=== PATIENT | female | born 1945 | race Caucasian/White ===

== ENCOUNTER 2017-02-22 05:59 | Inpatient (IN) | payer OTHER ==
[~2017-02-22] VITALS: Ht 160 cm; Wt 80.5 kg
[2017-02-22] VITALS (14 sets, daily range): BP systolic 87–153; BP diastolic 45–78
[2017-02-22 07:03] LABS: HEMATOCRIT 11.3 % (36.0-46.0); MCH 33.3 PG (29.0-34.0); MCHC 32.7 G/DL (30.0-36.0); MCV 101.8 FL (83-99); PLATELET COUNT 347 K/uL (156-360); RBC DIS.WIDTH-CV 16.2 % (11.8-14.6); RBC DIS.WIDTH-SD 56.3 % (39-53); RED BLOOD COUNT 1.11 M/uL (3.80-5.20); WHITE BLOOD COUNT 13.5 K/uL (4.1-10.2)
[2017-02-22 07:15] LABS: ANION GAP 12 MEQ/L (2-14); CHLORIDE 112 MEQ/L (99-109); POTASSIUM 4.4 MEQ/L (3.7-5.4); SAMPLE HEMOLYSIS CHECK 0; SAMPLE ICTERIC CHECK 0; SAMPLE LIPEMIA CHECK 0; SODIUM 145 MEQ/L (136-147)
[2017-02-22 07:20] LABS: GFR ESTIMATE (CALCULATED) 40 mL/min/; GLUCOSE 140 mg/dL (70-99); UREA NITROGEN (BUN) 79 mg/dL (9-23)
[2017-02-22 08:54] LABS: ADD MIUA? NO; BILIRUBIN NEGATIVE; BLOOD NEGATIVE; COLOR YELLOW ((YELLOW)); GLUCOSE (STRIP) NEGATIVE; KETONES NEGATIVE; LEUKOCYTES NEGATIVE; NITRITE NEGATIVE; PROTEIN (STRIP) NEGATIVE; SPECIFIC GRAVITY 1.012 (1.000-1.030); UCUL ADDED? NO; UROBILINOGEN 0.2 MG/DL (0.2-1.0)
[2017-02-22 09:31] LABS: TROP-I INTERPRETATION NEGATIVE; TROPONIN-I 0.18 ng/mL (0.0-0.30)
[2017-02-22] MEDS ORDERED: LO-DOSE ASPIRIN81 M2 PO (09:35)
[2017-02-22] MEDS ORDERED: NORVASC10 MG PO (09:35)
[2017-02-22] MEDS ORDERED: THERAGRAN1 TABLET PO (09:36)
[2017-02-22] MEDS ORDERED: COLACE100 MG PO (09:37)
[2017-02-22] MEDS ORDERED: FOLIC ACID1 MG PO (09:38)
[2017-02-22] MEDS ORDERED: HYDROCHLOROTHIA25 MG PO (09:39)
[2017-02-22] MEDS ORDERED: LISINOPRIL40 MG PO (09:42)
[2017-02-22] MEDS ORDERED: MELOXICAM7.5 MG PO (09:42)
[2017-02-22] MEDS ORDERED: METHOTREXATE2.5 MG PO (09:43)
[2017-02-22] MEDS ORDERED: POLYETHYLENE GL17 GM PO (09:50)
[2017-02-22] MEDS ORDERED: SERTRALINE HCL50 MG PO ×2 (09:51)
[2017-02-22] MEDS ORDERED: OYSTERCAL-D 501 EACH PO (09:52)
[2017-02-22] MEDS ORDERED: PRIMIDONE250 MG PO (09:53)
[2017-02-22] MEDS ORDERED: HYDROXYZINE PAM25 MG PO (09:54)
[2017-02-22] MEDS ORDERED: PROLIA60 MG/1 ML SC (11:19)
[2017-02-22] MEDS ORDERED: SERTRALINE HCL25 MG PO (11:20)
[2017-02-22] MEDS ORDERED: ACETAMINOPHEN325 M1 PO (11:22)
[2017-02-22] MEDS ORDERED: DENAVIR1.5 GM TP (11:23)
[2017-02-22] MEDS ORDERED: MUCINEX600 MG PO (11:23)
[2017-02-22] MEDS ORDERED: CETIRIZINE HCL10 M2 PO (11:23)
[2017-02-22] MEDS ORDERED: TRIPLE ANTIB28.35 GM TP (11:24)
[2017-02-22 15:16] LABS: TROP-I INTERPRETATION INDETERMINATE; TROPONIN-I 0.38 ng/mL (0.0-0.30)
[2017-02-22 20:00] LABS: HEMATOCRIT 19.7 % (36.0-46.0); MCV 92.9 FL (83-99)
[2017-02-22 22:28] LABS: TROP-I INTERPRETATION POSITIVE; TROPONIN-I 1.46 ng/mL (0.0-0.30)
[2017-02-23] VITALS (9 sets, daily range): BP systolic 124–140; BP diastolic 67–92
[2017-02-23 09:08] LABS: HEMATOCRIT 33.1 % (36.0-46.0); MCH 32.1 PG (29.0-34.0); MCHC 33.8 G/DL (30.0-36.0); MCV 94.8 FL (83-99); MEAN PLAT.VOLUME 10.6 uM^3 (9.5-12.4); NRBC (%) 0.4 /100 WBC (0-0); PLATELET COUNT 247 K/uL (156-360); RBC DIS.WIDTH-CV 16.8 % (11.8-14.6); RBC DIS.WIDTH-SD 54.2 % (39-53); WHITE BLOOD COUNT 14.1 K/uL (4.1-10.2)
[2017-02-23 09:11] LABS: RED BLOOD COUNT 3.49 M/uL (3.80-5.20)
[2017-02-23 09:37] LABS: ALKALINE PHOSPHATASE 72 IU/L (3-129); ANION GAP 12 MEQ/L (2-14); CHLORIDE 119 MEQ/L (99-109); GFR ESTIMATE (CALCULATED) 52 mL/min/; GLUCOSE 110 mg/dL (70-99); POTASSIUM 4.1 MEQ/L (3.7-5.4); SAMPLE HEMOLYSIS CHECK 0; SAMPLE ICTERIC CHECK 0; SAMPLE LIPEMIA CHECK 0; SODIUM 147 MEQ/L (136-147); TOTAL BILIRUBIN 0.5 MG/DL (0.0-1.0); UREA NITROGEN (BUN) 45 mg/dL (9-23)
[2017-02-23 10:45] LABS: INTER. NORMALIZED RATIO 1.1; PROTHROMBIN TIME 10.7 (9.2-11.2)
[2017-02-23 18:30] LABS: TROPONIN-I 0.87 ng/mL (0.0-0.30)
[2017-02-23 18:31] LABS: TROP-I INTERPRETATION POSITIVE
[2017-02-23 20:34] LABS: HEMATOCRIT 33.1 % (36.0-46.0); MCV 93.8 FL (83-99)
[2017-02-24] VITALS (22 sets, daily range): BP systolic 76–130; BP diastolic 48–99
[2017-02-24 05:43] LABS: EOSINOPHIL (%) 0.5 % (0-5); EOSINOPHIL COUNT 0.1 K/uL (0-0.3); HEMATOCRIT 31.1 % (36.0-46.0); IMMATURE GRANULOCYTE (%) 0.8 % (0.0-0.7); IMMATURE GRANULOCYTE COUNT 0.1 K/uL; INSTRUMENT ABS NEUTROPHIL CT 10.8 K/uL; LYMPHOCYTE COUNT 0.9 K/uL (1.0-2.8); MCH 32.4 PG (29.0-34.0); MCHC 34.4 G/DL (30.0-36.0); MCV 94.2 FL (83-99); MEAN PLAT.VOLUME 10.5 uM^3 (9.5-12.4); MONOCYTE (%) 7.2 % (3-12); MONOCYTE COUNT 0.9 K/uL (0-0.8); NEUTROPHIL (%) 84.1 % (45-76); NEUTROPHIL COUNT 10.8 K/uL (1.8-6.4); NRBC (%) 0.2 /100 WBC (0-0); PLATELET COUNT 244 K/uL (156-360); RBC DIS.WIDTH-CV 16.6 % (11.8-14.6); RBC DIS.WIDTH-SD 54.4 % (39-53); WHITE BLOOD COUNT 12.9 K/uL (4.1-10.2)
[2017-02-24 08:30] LABS: ANION GAP 9 MEQ/L (2-14); CHLORIDE 120 MEQ/L (99-109); POTASSIUM 3.6 MEQ/L (3.7-5.4); SAMPLE HEMOLYSIS CHECK 0; SAMPLE ICTERIC CHECK 0; SAMPLE LIPEMIA CHECK 0; SODIUM 146 MEQ/L (136-147)
[2017-02-24 08:35] LABS: GFR ESTIMATE (CALCULATED) > 59 mL/min/; GLUCOSE 121 mg/dL (70-99); UREA NITROGEN (BUN) 30 mg/dL (9-23)
[2017-02-24 19:51] LABS: HEMATOCRIT 32.4 % (36.0-46.0); MCV 94.5 FL (83-99)
[2017-02-25 04:24] VITALS: BP 119/69
[2017-02-25 05:36] LABS: EOSINOPHIL (%) 2.7 % (0-5); EOSINOPHIL COUNT 0.3 K/uL (0-0.3); HEMATOCRIT 31.3 % (36.0-46.0); IMMATURE GRANULOCYTE (%) 0.8 % (0.0-0.7); IMMATURE GRANULOCYTE COUNT 0.1 K/uL; INSTRUMENT ABS NEUTROPHIL CT 9.8 K/uL; LYMPHOCYTE COUNT 0.8 K/uL (1.0-2.8); MCH 30.6 PG (29.0-34.0); MCHC 32.3 G/DL (30.0-36.0); MCV 94.8 FL (83-99); MEAN PLAT.VOLUME 10.4 uM^3 (9.5-12.4); MONOCYTE (%) 6.7 % (3-12); MONOCYTE COUNT 0.8 K/uL (0-0.8); NEUTROPHIL (%) 83.1 % (45-76); NEUTROPHIL COUNT 9.8 K/uL (1.8-6.4); PLATELET COUNT 257 K/uL (156-360); RBC DIS.WIDTH-CV 17.1 % (11.8-14.6); RBC DIS.WIDTH-SD 54.4 % (39-53); WHITE BLOOD COUNT 11.8 K/uL (4.1-10.2)
[2017-02-25 06:36] LABS: ANION GAP 9 MEQ/L (2-14); CHLORIDE 122 MEQ/L (99-109); GFR ESTIMATE (CALCULATED) 58 mL/min/; GLUCOSE 117 mg/dL (70-99); SAMPLE HEMOLYSIS CHECK 2; SAMPLE ICTERIC CHECK 0; SAMPLE LIPEMIA CHECK 0; SODIUM 149 MEQ/L (136-147); UREA NITROGEN (BUN) 29 mg/dL (9-23)
[2017-02-25 06:39] LABS: POTASSIUM ND MEQ/L (3.7-5.4)
[2017-02-25 07:33] LABS: POTASSIUM 4.4 MEQ/L (3.7-5.4)
[2017-02-25 08:37] VITALS: BP 139/68
[2017-02-25 11:43] VITALS: BP 140/85
[2017-02-25 15:18] VITALS: BP 138/89
[2017-02-25 17:58] LABS: ANION GAP 9 MEQ/L (2-14); CHLORIDE 119 MEQ/L (99-109); GFR ESTIMATE (CALCULATED) > 59 mL/min/; GLUCOSE 117 mg/dL (70-99); POTASSIUM 4.1 MEQ/L (3.7-5.4); SAMPLE HEMOLYSIS CHECK 0; SAMPLE ICTERIC CHECK 0; SAMPLE LIPEMIA CHECK 0; SODIUM 146 MEQ/L (136-147); UREA NITROGEN (BUN) 23 mg/dL (9-23)
[2017-02-25 19:59] VITALS: BP 123/90
[2017-02-25 20:03] LABS: HEMATOCRIT 33.6 % (36.0-46.0); MCV 95.5 FL (83-99)
[2017-02-25 22:30] VITALS: BP 130/7; BP 130/70
[2017-02-26 04:36] VITALS: BP 145/79
[2017-02-26 05:02] LABS: HEMATOCRIT 31.4 % (36.0-46.0); MCH 30.7 PG (29.0-34.0); MCHC 32.5 G/DL (30.0-36.0); MCV 94.6 FL (83-99); MEAN PLAT.VOLUME 10.9 uM^3 (9.5-12.4); PLATELET COUNT 263 K/uL (156-360); RBC DIS.WIDTH-CV 16.6 % (11.8-14.6); RED BLOOD COUNT 3.32 M/uL (3.80-5.20); WHITE BLOOD COUNT 11.8 K/uL (4.1-10.2)
[2017-02-26 05:55] LABS: ALKALINE PHOSPHATASE 64 IU/L (3-129); ANION GAP 9 MEQ/L (2-14); CHLORIDE 117 MEQ/L (99-109); GFR ESTIMATE (CALCULATED) > 59 mL/min/; GLUCOSE 104 mg/dL (70-99); POTASSIUM 4.1 MEQ/L (3.7-5.4); SAMPLE HEMOLYSIS CHECK 1; SAMPLE ICTERIC CHECK 0; SAMPLE LIPEMIA CHECK 0; SODIUM 143 MEQ/L (136-147); TOTAL BILIRUBIN 0.4 MG/DL (0.0-1.0); UREA NITROGEN (BUN) 20 mg/dL (9-23)
[2017-02-26 08:35] VITALS: BP 144/72
[2017-02-26] MEDS ORDERED: PANTOPRAZOLE SO40 MG PO (11:48)
[2017-02-26] MEDS ORDERED: DILTIAZEM 24HR120 MG PO (11:48)
[2017-02-26] MEDS ORDERED: DIGOXIN125 MCG PO (11:48)
[2017-02-26 12:00] VITALS: BP 147/78
== END 2017-02-26 16:51 | disposition home or self-care (01) | DRG 378 ==
LOC: EME → EDBD 05:59 → EME 05:59 → 4EAST 09:03 → EDOF 09:03 → 4EAST 11:00
PROVIDERS: Hospitalist; Internal Medicine Gastroenterology; Nurse Practitioner Family; Physician Assistant; Physician Assistant Medical; Student in an Organized Health Care Education/Training Program
PROC: 30233N1 Transfusion of Nonautologous Red Blood Cells into Peripheral Vein, Percutaneous Approach (ICD-10-PCS; principal; 2017-02-22)
PROC: 0DB68ZX Excision of Stomach, Via Natural or Artificial Opening Endoscopic, Diagnostic (ICD-10-PCS; 2017-02-22)
DX: K25.4 Chronic or unspecified gastric ulcer with hemorrhage (principal); N17.9 Acute kidney failure, unspecified; E87.2 Acidosis; E87.0 Hyperosmolality and hypernatremia; I95.9 Hypotension, unspecified; I24.8 Other forms of acute ischemic heart disease; I48.91 Unspecified atrial fibrillation; I47.1 Supraventricular tachycardia; B00.1 Herpesviral vesicular dermatitis; B35.6 Tinea cruris; E86.0 Dehydration; D62 Acute posthemorrhagic anemia; E87.6 Hypokalemia; F71 Moderate intellectual disabilities; G40.909 Epilepsy, unspecified, not intractable, without status epilepticus; G80.9 Cerebral palsy, unspecified; I10 Essential (primary) hypertension; K22.10 Ulcer of esophagus without bleeding; K29.70 Gastritis, unspecified, without bleeding; K57.90 Diverticulosis of intestine, part unspecified, without perforation or abscess without bleeding; K59.00 Constipation, unspecified; M06.9 Rheumatoid arthritis, unspecified; M19.90 Unspecified osteoarthritis, unspecified site; M81.0 Age-related osteoporosis without current pathological fracture; Z66 Do not resuscitate; Z79.82 Long term (current) use of aspirin; Z79.899 Other long term (current) drug therapy; Z87.11 Personal history of peptic ulcer disease; R00.0 Tachycardia, unspecified; R06.82 Tachypnea, not elsewhere classified; M62.81 Muscle weakness (generalized)
CPT/HCPCS: 71010; 71020; 74176; 80048; 80048 91; 80053; 81003; 84484; 84999; 85014; 85018; 85025; 85027; 85610; 86900; 86901; 86920; 88305; 88342 TC; 93005; 93306; 94640; 94799; 99202; 99281; 99285; C9113; J1160; J2060; J7030; J7050; J7070; P9016

== ENCOUNTER → 2017-05-01 | Outpatient (CLI) | payer OTHER ==
[~2017-05-01] VITALS: Ht 167.6 cm; Wt 78.0 kg
[~2017-05-01] MED LIST: ACETAMINOPHEN325 M1 PO; BENADRYL25 MG PO; CETIRIZINE HCL10 M2 PO; COLACE100 MG PO; DENAVIR1.5 GM TP; DIGOXIN125 MCG PO; DILTIAZEM 24HR120 MG PO; FOLIC ACID1 MG PO; HYDROCHLOROTHIA25 MG PO; HYDROXYZINE PAM25 MG PO; LISINOPRIL40 MG PO; LO-DOSE ASPIRIN81 M2 PO; MELOXICAM7.5 MG PO; METHOTREXATE2.5 MG PO; MUCINEX600 MG PO; NORVASC10 MG PO; OYSTERCAL-D 501 EACH PO; PANTOPRAZOLE SO40 MG PO; POLYETHYLENE GL17 GM PO; PRIMIDONE250 MG PO; PROLIA60 MG/1 ML SC; SERTRALINE HCL25 MG PO; SERTRALINE HCL50 MG PO; THERAGRAN1 TABLET PO; TRIPLE ANTIB28.35 GM TP
== END | disposition home or self-care (01) ==
LOC: AMB 12:14 → OPR 13:00
PROC: 0DB68ZX Excision of Stomach, Via Natural or Artificial Opening Endoscopic, Diagnostic (ICD-10-PCS; principal; 2017-05-01)
PROC: 0DBK8ZX Excision of Ascending Colon, Via Natural or Artificial Opening Endoscopic, Diagnostic (ICD-10-PCS; principal; 2017-05-01)
PROC: 0DBN8ZX Excision of Sigmoid Colon, Via Natural or Artificial Opening Endoscopic, Diagnostic (ICD-10-PCS; principal; 2017-05-01)
DX: Z12.11 Encounter for screening for malignant neoplasm of colon (principal); Z09 Encounter for follow-up examination after completed treatment for conditions other than malignant neoplasm; Z87.11 Personal history of peptic ulcer disease; K29.70 Gastritis, unspecified, without bleeding; D12.2 Benign neoplasm of ascending colon; K63.5 Polyp of colon; K64.4 Residual hemorrhoidal skin tags; K44.9 Diaphragmatic hernia without obstruction or gangrene; D64.9 Anemia, unspecified; Z79.82 Long term (current) use of aspirin; K21.9 Gastro-esophageal reflux disease without esophagitis; Z88.1 Allergy status to other antibiotic agents; Z88.8 Allergy status to other drugs, medicaments and biological substances; Z91.09 Other allergy status, other than to drugs and biological substances
CPT/HCPCS: 88305; 88342 TC; J2250

== ENCOUNTER 2017-10-23 20:04 | Inpatient (IN) | payer OTHER ==
[~2017-10-23] VITALS: Ht 162.6 cm; Wt 70.0 kg
[~2017-10-23 20:04] MED LIST changes: +AMLODIPINE BESY10 MG PO; +ASPIRIN81 M2 PO; +CARDIZEM CD,CA180 MG PO; +MIRALAX17 GM PO; +PROTONIX40 MG PO
[2017-10-23 20:53] LABS: BASOPHIL (%) 0.3 % (0-1); EOSINOPHIL (%) 2.3 % (0-5); EOSINOPHIL COUNT 0.2 K/uL (0-0.3); HEMATOCRIT 24.7 % (36.0-46.0); HEMOGLOBIN 8.1 G/DL (11.9-15.5); IMMATURE GRANULOCYTE (%) 0.5 % (0.0-0.7); LYMPHOCYTE (%) 16.2 % (15-42); LYMPHOCYTE COUNT 1.1 K/uL (1.0-2.8); MCH 29.6 PG (29.0-34.0); MCHC 32.8 G/DL (30.0-36.0); MCV 90.1 FL (83-99); MONOCYTE COUNT 0.5 K/uL (0-0.8); NEUTROPHIL (%) 73.7 % (45-76); NEUTROPHIL COUNT 4.8 K/uL (1.8-6.4); RBC DIS.WIDTH-CV 14.5 % (11.8-14.6); RBC DIS.WIDTH-SD 46.6 % (39-53); RED BLOOD COUNT 2.74 M/uL (3.80-5.20); WHITE BLOOD COUNT 6.5 K/uL (4.1-10.2)
[2017-10-23 20:55] LABS: PLATELET COUNT 260 K/uL (156-360)
[2017-10-23 21:03] LABS: ALBUMIN 3.7 g/dL (3.2-4.8); CHLORIDE 108 mEq/L (99-109); SODIUM 136 mEq/L (136-147)
[2017-10-23 21:05] LABS: GLUCOSE 122 mg/dL (70-99)
[2017-10-23 21:07] LABS: TOTAL BILIRUBIN 0.1 mg/dL (0.0-1.0)
[2017-10-23 21:09] LABS: ALKALINE PHOSPHATASE 106 IU/L (3-129); CREATININE 1.1 mg/dL (0.6-1.3); GFR ESTIMATE (CALCULATED) 52 mL/min/
[2017-10-23 21:10] LABS: UREA NITROGEN (BUN) 45 mg/dL (9-23)
[2017-10-23 21:11] LABS: AST (GOT) 21 IU/L (2-34)
[2017-10-23 21:12] LABS: ALT (GPT) 37 IU/L (3-49)
[2017-10-23 21:17] LABS: TROP-I INTERPRETATION NEGATIVE; TROPONIN-I < 0.01 ng/mL (0.0-0.30)
[2017-10-23 21:19] LABS: POTASSIUM 6.5 mEq/L (3.7-5.4)
[2017-10-23 21:21] LABS: APPEARANCE SL.HAZY ((CLEAR)); BILIRUBIN NEGATIVE; BLOOD NEGATIVE; COLOR YELLOW ((YELLOW)); GLUCOSE (STRIP) NEGATIVE; KETONES NEGATIVE; LEUKOCYTES SMALL; NITRITE NEGATIVE; PROTEIN (STRIP) 30; SPECIFIC GRAVITY 1.014 (1.000-1.030); UROBILINOGEN 0.2 MG/DL (0.2-1.0)
[2017-10-23 21:34] LABS: BACTERIA RARE /HPF; EPITHELIAL CELLS RARE /HPF; HYALINE CASTS 0-5 /LPF; MUCUS NONE SEEN /LPF; RED BLOOD CELLS 0-5 /HPF (0-5); UCUL ADDED? YES
[2017-10-23] MEDS ORDERED: AMLODIPINE BESY10 MG PO (23:33)
[2017-10-23] MEDS ORDERED: METHOTREXATE2.5 MG PO (23:37)
[2017-10-23] MEDS ORDERED: DENAVIR1.5 GM TP (23:38)
[2017-10-23] MEDS ORDERED: PREDNISONE5 MG PO (23:38)
[2017-10-23] MEDS ORDERED: IBUPROFEN800 MG PO (23:39)
[2017-10-23] MEDS ORDERED: PROCTOZONE-HC30 GM PR (23:39)
[2017-10-24 02:16] LABS: CHLORIDE 112 mEq/L (99-109); SODIUM 137 mEq/L (136-147)
[2017-10-24 02:22] LABS: GFR ESTIMATE (CALCULATED) 58 mL/min/
[2017-10-24 02:23] LABS: UREA NITROGEN (BUN) 45 mg/dL (9-23)
[2017-10-24 02:30] LABS: GLUCOSE 65 mg/dL (70-99); POTASSIUM 6.8 mEq/L (3.7-5.4)
[2017-10-24 02:59] LABS: ALBUMIN 3.6 g/dL (3.2-4.8)
[2017-10-24 03:02] LABS: TOTAL PROTEIN 6.6 g/dL (6.4-8.3)
[2017-10-24 03:05] LABS: ALKALINE PHOSPHATASE 114 IU/L (3-129)
[2017-10-24 03:07] LABS: DIRECT BILIRUBIN 0.1 mg/dL (0.0-0.3)
[2017-10-24 03:08] LABS: ALT (GPT) 57 IU/L (3-49); CREATINE KINASE 52 IU/L (1-294); TOTAL CK 52 IU/L (1-294)
[2017-10-24 03:09] LABS: AST (GOT) 45 IU/L (2-34); TOTAL BILIRUBIN 0.2 mg/dL (0.0-1.0)
[2017-10-24 03:14] LABS: CK-MB 3.7 ng/mL (0.0-4.9); CKMB RELATIVE INDEX 7.1 (0.0-3.9)
[2017-10-24 03:15] VITALS: BP 126/60
[2017-10-24 05:43] LABS: TROP-I INTERPRETATION NEGATIVE; TROPONIN-I < 0.01 ng/mL (0.0-0.30)
[2017-10-24 08:17] LABS: HEMATOCRIT 23.3 % (36.0-46.0); HEMOGLOBIN 7.6 G/DL (11.9-15.5); MCH 29.7 PG (29.0-34.0); MCHC 32.6 G/DL (30.0-36.0); PLATELET COUNT 271 K/uL (156-360); RBC DIS.WIDTH-CV 14.8 % (11.8-14.6); RED BLOOD COUNT 2.56 M/uL (3.80-5.20); WHITE BLOOD COUNT 8.3 K/uL (4.1-10.2)
[2017-10-24 08:30] VITALS: BP 136/61
[2017-10-24 08:35] LABS: CHLORIDE 112 MEQ/L (99-109); CREATININE 1.1 MG/DL (0.6-1.3); GFR ESTIMATE (CALCULATED) 52 mL/min/; GLUCOSE 70 mg/dL (70-99); POTASSIUM 6.6 MEQ/L (3.7-5.4); SODIUM 140 MEQ/L (136-147); UREA NITROGEN (BUN) 43 mg/dL (9-23)
[2017-10-24 08:47] LABS: THYROTROPIN (TSH) 15.9 MIU/L (0.4-5.5)
[2017-10-24 12:25] VITALS: BP 135/62
[2017-10-24 13:11] LABS: TROP-I INTERPRETATION NEGATIVE; TROPONIN-I 0.02 ng/mL (0.0-0.30)
[2017-10-24 15:33] LABS: C DIFF TOXIN NEGATIVE (NEGATIVE)
[2017-10-24 16:07] VITALS: BP 139/62
[2017-10-24 16:34] LABS: ALBUMIN 3.6 G/DL (3.2-4.8); CHLORIDE 114 MEQ/L (99-109); SODIUM 143 MEQ/L (136-147)
[2017-10-24 16:39] LABS: CREATININE 1.3 MG/DL (0.6-1.3); GFR ESTIMATE (CALCULATED) 43 mL/min/; PHOSPHORUS 3.9 mg/dL (2.5-4.9); UREA NITROGEN (BUN) 35 mg/dL (9-23)
[2017-10-24 16:46] LABS: GLUCOSE 107 mg/dL (70-99)
[2017-10-24 19:45] VITALS: BP 174/76
[2017-10-24 21:27] LABS: ALBUMIN 3.7 G/DL (3.2-4.8); CHLORIDE 112 MEQ/L (99-109); CREATININE 1.3 MG/DL (0.6-1.3); GFR ESTIMATE (CALCULATED) 43 mL/min/; GLUCOSE 117 mg/dL (70-99); PHOSPHORUS 3.6 mg/dL (2.5-4.9); POTASSIUM 5.4 MEQ/L (3.7-5.4); SODIUM 142 MEQ/L (136-147); UREA NITROGEN (BUN) 38 mg/dL (9-23)
[2017-10-24 22:30] VITALS: BP 155/70
[2017-10-25] VITALS (8 sets, daily range): BP systolic 143–161; BP diastolic 63–80
[2017-10-25 05:17] LABS: HEMATOCRIT 23.4 % (36.0-46.0); HEMOGLOBIN 7.7 G/DL (11.9-15.5); MCH 29.4 PG (29.0-34.0); MCHC 32.9 G/DL (30.0-36.0); MCV 89.3 FL (83-99); RBC DIS.WIDTH-CV 14.8 % (11.8-14.6); RBC DIS.WIDTH-SD 47.7 % (39-53); RED BLOOD COUNT 2.62 M/uL (3.80-5.20); WHITE BLOOD COUNT 9.2 K/uL (4.1-10.2)
[2017-10-25 05:26] LABS: INTER. NORMALIZED RATIO 1.1
[2017-10-25 05:46] LABS: PLATELET COUNT 281 K/uL (156-360)
[2017-10-25 05:59] LABS: CHLORIDE 112 MEQ/L (99-109); CREATININE 1.1 MG/DL (0.6-1.3); GFR ESTIMATE (CALCULATED) 52 mL/min/; GLUCOSE 102 mg/dL (70-99); POTASSIUM 4.7 MEQ/L (3.7-5.4); SODIUM 144 MEQ/L (136-147); UREA NITROGEN (BUN) 29 mg/dL (9-23)
[2017-10-25 06:01] LABS: ALBUMIN 3.5 G/DL (3.2-4.8); ALKALINE PHOSPHATASE 96 IU/L (3-129); ALT (GPT) 52 IU/L (3-49); AST (GOT) 36 IU/L (2-34); CHLORIDE 113 MEQ/L (99-109); CREATININE 1.1 MG/DL (0.6-1.3); GFR ESTIMATE (CALCULATED) 52 mL/min/; GLUCOSE 104 mg/dL (70-99); POTASSIUM 4.7 MEQ/L (3.7-5.4); SODIUM 144 MEQ/L (136-147); TOTAL BILIRUBIN 0.2 MG/DL (0.0-1.0); TOTAL PROTEIN 6.3 G/DL (6.4-8.3); UREA NITROGEN (BUN) 29 mg/dL (9-23)
[2017-10-26] VITALS (8 sets, daily range): BP systolic 143–167; BP diastolic 70–95
[2017-10-26 06:08] LABS: HEMATOCRIT 27.9 % (36.0-46.0); HEMOGLOBIN 9.3 G/DL (11.9-15.5); MCH 29.2 PG (29.0-34.0); MCHC 33.3 G/DL (30.0-36.0); MCV 87.7 FL (83-99); PLATELET COUNT 265 K/uL (156-360); RBC DIS.WIDTH-SD 48.2 % (39-53)
[2017-10-26 06:20] LABS: RED BLOOD COUNT 3.18 M/uL (3.80-5.20)
[2017-10-26 06:34] LABS: ALBUMIN 3.4 G/DL (3.2-4.8); CHLORIDE 108 MEQ/L (99-109); CREATININE 1.2 MG/DL (0.6-1.3); GFR ESTIMATE (CALCULATED) 47 mL/min/; GLUCOSE 118 mg/dL (70-99); PHOSPHORUS 3.2 mg/dL (2.5-4.9); POTASSIUM 4.2 MEQ/L (3.7-5.4); SODIUM 140 MEQ/L (136-147); UREA NITROGEN (BUN) 30 mg/dL (9-23)
[2017-10-26 07:44] LABS: FERRITIN 120 NG/ML (10-291)
[2017-10-26 07:55] LABS: FOLIC ACID (FOLATE) > 22.0 NG/ML (5.0-22.0)
[2017-10-26 10:48] LABS: IRON 78 MCG/DL (35-150); TRANSFERRIN (TIBC) 199.8 mg/dL (215-380); TRANSFERRIN SATUR. 39 % (20-55)
[2017-10-26 12:05] LABS: STOOL OCCULT BLD 1ST SPECIMEN NEGATIVE
[2017-10-27 04:54] VITALS: BP 155/69
[2017-10-27 05:34] LABS: BASOPHIL (%) 0.2 % (0-1); EOSINOPHIL (%) 1.7 % (0-5); EOSINOPHIL COUNT 0.2 K/uL (0-0.3); HEMATOCRIT 28.2 % (36.0-46.0); HEMOGLOBIN 9.6 G/DL (11.9-15.5); IMMATURE GRANULOCYTE (%) 0.4 % (0.0-0.7); LYMPHOCYTE (%) 14.4 % (15-42); LYMPHOCYTE COUNT 1.8 K/uL (1.0-2.8); MCV 88.1 FL (83-99); MONOCYTE (%) 9.8 % (3-12); MONOCYTE COUNT 1.2 K/uL (0-0.8); NEUTROPHIL (%) 73.5 % (45-76); PLATELET COUNT 289 K/uL (156-360); RBC DIS.WIDTH-CV 14.5 % (11.8-14.6); RBC DIS.WIDTH-SD 46.4 % (39-53); WHITE BLOOD COUNT 12.2 K/uL (4.1-10.2)
[2017-10-27 12:40] VITALS: BP 133/88
[2017-10-27 15:19] VITALS: BP 150/74
[2017-10-27 19:17] VITALS: BP 151/92
[2017-10-27 22:39] VITALS: BP 157/79
[2017-10-28 02:17] VITALS: BP 167/80
[2017-10-28 07:22] VITALS: BP 172/81
[2017-10-28 11:35] VITALS: BP 158/84
[2017-10-28] MEDS ORDERED: LEVOTHYROXINE25 MCG PO (13:39)
[2017-10-28 17:37] VITALS: BP 173/78
[2017-10-28 19:45] VITALS: BP 150/60
[2017-10-29 00:30] VITALS: BP 152/79
[2017-10-29 03:15] VITALS: BP 150/65
[2017-10-29 07:30] VITALS: BP 141/91
[2017-10-29 12:12] VITALS: BP 159/63
[2017-10-30 00:08] VITALS: BP 134/61
[2017-10-30 07:00] VITALS: BP 153/72
[2017-10-30 15:15] VITALS: BP 169/74
== END 2017-10-30 16:36 | disposition home or self-care (01) | DRG 682 ==
LOC: EME → EDBD 20:04 → EDOF 10-24 00:57 → 4EAST 10-24 00:57 → ENRESERV 10-24 00:58 → 4EAST 10-24 03:15 → ENRESERV 10-29 16:18 → 5EAST 10-29 18:04 → ENPENDDIS 10-30 → 5EAST 10-30 16:36
PROVIDERS: Emergency Medicine; Hospitalist; Internal Medicine; Internal Medicine Gastroenterology; Internal Medicine Nephrology
PROC: 30233N1 Transfusion of Nonautologous Red Blood Cells into Peripheral Vein, Percutaneous Approach (ICD-10-PCS; principal; 2017-10-25)
PROC: 0DB68ZX Excision of Stomach, Via Natural or Artificial Opening Endoscopic, Diagnostic (ICD-10-PCS; 2017-10-26)
DX: N17.9 Acute kidney failure, unspecified (principal); R68.0 Hypothermia, not associated with low environmental temperature; J69.0 Pneumonitis due to inhalation of food and vomit; J20.9 Acute bronchitis, unspecified; E87.5 Hyperkalemia; R00.1 Bradycardia, unspecified; N31.9 Neuromuscular dysfunction of bladder, unspecified; R33.9 Retention of urine, unspecified; K29.70 Gastritis, unspecified, without bleeding; K44.9 Diaphragmatic hernia without obstruction or gangrene; D50.0 Iron deficiency anemia secondary to blood loss (chronic); G40.909 Epilepsy, unspecified, not intractable, without status epilepticus; I10 Essential (primary) hypertension; E03.9 Hypothyroidism, unspecified; G80.9 Cerebral palsy, unspecified; F71 Moderate intellectual disabilities; R60.0 Localized edema; M06.9 Rheumatoid arthritis, unspecified; F32.9 Major depressive disorder, single episode, unspecified; M19.90 Unspecified osteoarthritis, unspecified site; Z66 Do not resuscitate; Z86.010 Personal history of colon polyps; Z87.11 Personal history of peptic ulcer disease; Z79.52 Long term (current) use of systemic steroids; Z87.440 Personal history of urinary (tract) infections
CPT/HCPCS: 70450; 71045; 80048; 80048 91; 80053; 80069; 80076; 81003; 82272; 82550; 82550 91; 82553; 82607; 82728; 82746; 82948; 83540; 83605; 84439; 84443; 84466; 84484; 85025; 85027; 85610; 86850; 86900; 86901; 86920; 87040; 87086; 87493; 88305; 88342 TC; 92610 GN; 93005; 94640; 99202; 99281; 99285; J0360; J0610; J0692; J1720; J1815; J1940; J3370; J7030; J7050; J7512; J8610; P9016; Q0177

== ENCOUNTER 2017-12-17 03:48 | Inpatient (IN) | payer OTHER ==
[~2017-12-17] VITALS: Ht 165.1 cm; Wt 75.0 kg
[~2017-12-17 03:48] MED LIST changes: +IBUPROFEN800 MG PO; +LEVOTHYROXINE25 MCG PO; +PREDNISONE5 MG PO; +PROCTOZONE-HC30 GM PR
[2017-12-17 04:17] LABS: BASE EXCESS -5.9 mEq/L (-3 to +3); BICARBONATE 19.5 mEq/L (22-26); CARBOXY HGB 0.4 % (0-5); METHEMOGLOBIN 0.2 % (0-1.5); PCO2 37 mm Hg (35-45); PO2 62 mm Hg (80-100); pH 7.33 (7.35-7.45)
[2017-12-17 04:18] LABS: COMMENTS - BLOOD GASES C+; DEVICE NC; O2 FLOW 6 L/MIN; SITE RR
[2017-12-17 04:44] LABS: HEMATOCRIT 26.1 % (36.0-46.0); MCH 30.6 PG (29.0-34.0); MCHC 34.9 G/DL (30.0-36.0); MCV 87.9 FL (83-99); RBC DIS.WIDTH-CV 15.4 % (11.8-14.6); RBC DIS.WIDTH-SD 49.1 % (39-53); WHITE BLOOD COUNT 16.6 K/uL (4.1-10.2)
[2017-12-17 04:51] LABS: HEMOGLOBIN 9.1 G/DL (11.9-15.5); RED BLOOD COUNT 2.97 M/uL (3.80-5.20)
[2017-12-17 04:59] LABS: ALBUMIN 3.6 g/dL (3.2-4.8); CHLORIDE 104 mEq/L (99-109); POTASSIUM 5.9 mEq/L (3.7-5.4); SODIUM 131 mEq/L (136-147)
[2017-12-17 05:01] LABS: GLUCOSE 109 mg/dL (70-99); TOTAL PROTEIN 6.4 g/dL (6.4-8.3)
[2017-12-17 05:03] LABS: TOTAL BILIRUBIN 0.2 mg/dL (0.0-1.0)
[2017-12-17 05:04] LABS: ALKALINE PHOSPHATASE 88 IU/L (3-129)
[2017-12-17 05:05] LABS: GFR ESTIMATE (CALCULATED) 58 mL/min/
[2017-12-17 05:06] LABS: AST (GOT) 17 IU/L (2-34); UREA NITROGEN (BUN) 41 mg/dL (9-23)
[2017-12-17 05:08] LABS: ALT (GPT) 31 IU/L (3-49)
[2017-12-17 05:14] LABS: DIGOXIN 0.6 ng/mL (0.8-2.0)
[2017-12-17 05:54] LABS: PLAT.SUFFICIENCY ADEQUATE
[2017-12-17 05:55] LABS: PLATELET COUNT 298 K/uL (156-360)
[2017-12-17 10:10] VITALS: BP 123/60
[2017-12-17] MEDS ORDERED: LOMOTIL TABLET1 EACH PO (11:08)
[2017-12-17] MEDS ORDERED: DENAVIR1.5 GM TP (11:08)
[2017-12-17 15:55] VITALS: BP 125/65
[2017-12-17 19:10] VITALS: BP 111/55
[2017-12-18 00:10] VITALS: BP 119/60
[2017-12-18 04:48] VITALS: BP 142/67
[2017-12-18 05:32] LABS: HEMATOCRIT 23.6 % (36.0-46.0); MCH 29.9 PG (29.0-34.0); MCHC 33.9 G/DL (30.0-36.0); MCV 88.1 FL (83-99); RBC DIS.WIDTH-CV 15.9 % (11.8-14.6); RBC DIS.WIDTH-SD 50.8 % (39-53); RED BLOOD COUNT 2.68 M/uL (3.80-5.20); WHITE BLOOD COUNT 11.1 K/uL (4.1-10.2)
[2017-12-18 06:12] LABS: PLAT.SUFFICIENCY ADEQUATE; PLATELET COUNT 253 K/uL (156-360)
[2017-12-18 07:10] VITALS: BP 140/71
[2017-12-18 12:50] VITALS: BP 160/74
[2017-12-18 15:40] VITALS: BP 149/68
[2017-12-18 21:20] VITALS: BP 174/74
[2017-12-19 00:28] VITALS: BP 138/67
[2017-12-19 05:08] VITALS: BP 159/71
[2017-12-19 05:29] LABS: BASOPHIL (%) 0.3 % (0-1); EOSINOPHIL (%) 0.3 % (0-5); HEMATOCRIT 23.9 % (36.0-46.0); HEMOGLOBIN 7.9 G/DL (11.9-15.5); IMMATURE GRANULOCYTE (%) 1.2 % (0.0-0.7); LYMPHOCYTE (%) 8.9 % (15-42); LYMPHOCYTE COUNT 1.1 K/uL (1.0-2.8); MCH 29.6 PG (29.0-34.0); MCHC 33.1 G/DL (30.0-36.0); MCV 89.5 FL (83-99); MONOCYTE (%) 6.3 % (3-12); MONOCYTE COUNT 0.8 K/uL (0-0.8); NEUTROPHIL COUNT 9.9 K/uL (1.8-6.4); PLATELET COUNT 250 K/uL (156-360); RBC DIS.WIDTH-CV 16.1 % (11.8-14.6); RBC DIS.WIDTH-SD 52.2 % (39-53); RED BLOOD COUNT 2.67 M/uL (3.80-5.20); WHITE BLOOD COUNT 11.9 K/uL (4.1-10.2)
[2017-12-19 05:55] LABS: CHLORIDE 114 MEQ/L (99-109); CREATININE 1.1 MG/DL (0.6-1.3); GFR ESTIMATE (CALCULATED) 52 mL/min/; GLUCOSE 134 mg/dL (70-99)
[2017-12-19 05:56] LABS: POTASSIUM 4.3 MEQ/L (3.7-5.4); SODIUM 143 MEQ/L (136-147); UREA NITROGEN (BUN) 19 mg/dL (9-23)
[2017-12-19 08:12] VITALS: BP 146/102
[2017-12-19 11:30] VITALS: BP 154/69
[2017-12-19 18:05] VITALS: BP 152/68
[2017-12-19 19:45] VITALS: BP 167/86
[2017-12-20] VITALS: BP 155/86
[2017-12-20 03:55] VITALS: BP 149/75
[2017-12-20 06:03] LABS: BASOPHIL (%) 0.2 % (0-1); EOSINOPHIL (%) 0 % (0-5); HEMATOCRIT 24.9 % (36.0-46.0); HEMOGLOBIN 8.2 G/DL (11.9-15.5); IMMATURE GRANULOCYTE (%) 1.4 % (0.0-0.7); LYMPHOCYTE (%) 8.8 % (15-42); LYMPHOCYTE COUNT 0.9 K/uL (1.0-2.8); MCH 30.1 PG (29.0-34.0); MCHC 32.9 G/DL (30.0-36.0); MCV 91.5 FL (83-99); MONOCYTE (%) 2.3 % (3-12); MONOCYTE COUNT 0.2 K/uL (0-0.8); NEUTROPHIL (%) 87.3 % (45-76); NEUTROPHIL COUNT 8.8 K/uL (1.8-6.4); PLATELET COUNT 259 K/uL (156-360); RBC DIS.WIDTH-CV 16.2 % (11.8-14.6); RBC DIS.WIDTH-SD 54.2 % (39-53); RED BLOOD COUNT 2.72 M/uL (3.80-5.20); WHITE BLOOD COUNT 10.1 K/uL (4.1-10.2)
[2017-12-20 06:15] LABS: CHLORIDE 116 MEQ/L (99-109); CREATININE 1.1 MG/DL (0.6-1.3); GFR ESTIMATE (CALCULATED) 52 mL/min/; GLUCOSE 160 mg/dL (70-99); POTASSIUM 4.5 MEQ/L (3.7-5.4); SODIUM 147 MEQ/L (136-147); UREA NITROGEN (BUN) 22 mg/dL (9-23)
[2017-12-20 08:05] VITALS: BP 160/74
[2017-12-20 11:56] VITALS: BP 158/76
[2017-12-20 16:14] VITALS: BP 166/79
[2017-12-20 20:15] VITALS: BP 138/62
[2017-12-21 00:17] VITALS: BP 137/76
[2017-12-21 04:00] VITALS: BP 148/71
[2017-12-21 08:02] VITALS: BP 149/77
[2017-12-21] MEDS ORDERED: AUGMENTIN875 MG PO (12:17)
[2017-12-21 16:52] LABS: HEMATOCRIT 24.6 % (36.0-46.0); HEMOGLOBIN 8.1 G/DL (11.9-15.5); MCHC 32.9 G/DL (30.0-36.0); MCV 91.1 FL (83-99); RBC DIS.WIDTH-CV 16.6 % (11.8-14.6); RBC DIS.WIDTH-SD 54.1 % (39-53); WHITE BLOOD COUNT 12.6 K/uL (4.1-10.2)
[2017-12-21 16:58] LABS: PLATELET COUNT 340 K/uL (156-360)
[2017-12-21 17:10] LABS: CHLORIDE 123 MEQ/L (99-109); POTASSIUM 3.6 MEQ/L (3.7-5.4)
[2017-12-21 17:11] LABS: SODIUM 155 MEQ/L (136-147)
[2017-12-21 17:44] LABS: CREATININE 1.2 MG/DL (0.6-1.3); GFR ESTIMATE (CALCULATED) 47 mL/min/
[2017-12-21 17:45] LABS: GLUCOSE 109 mg/dL (70-99); UREA NITROGEN (BUN) 37 mg/dL (9-23)
[2017-12-21 23:44] VITALS: BP 156/68
[2017-12-22 07:42] VITALS: BP 117/84
[2017-12-22 08:45] LABS: CHLORIDE 125 MEQ/L (99-109); CREATININE 1.1 MG/DL (0.6-1.3); GFR ESTIMATE (CALCULATED) 52 mL/min/; GLUCOSE 128 mg/dL (70-99); POTASSIUM 3.6 MEQ/L (3.7-5.4); SODIUM 155 MEQ/L (136-147); UREA NITROGEN (BUN) 35 mg/dL (9-23)
[2017-12-22 15:56] VITALS: BP 137/78
[2017-12-22 18:27] LABS: CHLORIDE 122 MEQ/L (99-109); CREATININE 1.1 MG/DL (0.6-1.3); GFR ESTIMATE (CALCULATED) 52 mL/min/; GLUCOSE 134 mg/dL (70-99); POTASSIUM 3.6 MEQ/L (3.7-5.4); SODIUM 153 MEQ/L (136-147); UREA NITROGEN (BUN) 30 mg/dL (9-23)
[2017-12-23 00:24] VITALS: BP 135/76
[2017-12-23 07:52] LABS: CHLORIDE 118 MEQ/L (99-109); GFR ESTIMATE (CALCULATED) 58 mL/min/; GLUCOSE 141 mg/dL (70-99); POTASSIUM 3.8 MEQ/L (3.7-5.4); SODIUM 149 MEQ/L (136-147); UREA NITROGEN (BUN) 24 mg/dL (9-23)
[2017-12-23 08:01] VITALS: BP 132/93
[2017-12-23 15:48] VITALS: BP 130/94
[2017-12-23 23:39] VITALS: BP 129/61
[2017-12-24 06:30] LABS: CHLORIDE 115 MEQ/L (99-109); CREATININE 1.1 MG/DL (0.6-1.3); GFR ESTIMATE (CALCULATED) 52 mL/min/; GLUCOSE 136 mg/dL (70-99); POTASSIUM 3.9 MEQ/L (3.7-5.4); SODIUM 144 MEQ/L (136-147); UREA NITROGEN (BUN) 26 mg/dL (9-23)
[2017-12-24 07:22] VITALS: BP 123/80
[2017-12-24 15:38] VITALS: BP 121/68
[2017-12-24 19:53] LABS: CHLORIDE 110 MEQ/L (99-109); CREATININE 1.2 MG/DL (0.6-1.3); GFR ESTIMATE (CALCULATED) 47 mL/min/; GLUCOSE 144 mg/dL (70-99); POTASSIUM 3.9 MEQ/L (3.7-5.4); SODIUM 140 MEQ/L (136-147); UREA NITROGEN (BUN) 28 mg/dL (9-23)
[2017-12-24 23:49] VITALS: BP 147/72
[2017-12-25 05:15] LABS: HEMATOCRIT 22.2 % (36.0-46.0); HEMOGLOBIN 7.2 G/DL (11.9-15.5); MCH 30.5 PG (29.0-34.0); MCHC 32.4 G/DL (30.0-36.0); MCV 94.1 FL (83-99); RBC DIS.WIDTH-CV 16.7 % (11.8-14.6); RBC DIS.WIDTH-SD 55.8 % (39-53); RED BLOOD COUNT 2.36 M/uL (3.80-5.20); WHITE BLOOD COUNT 12.5 K/uL (4.1-10.2)
[2017-12-25 05:34] LABS: CHLORIDE 115 MEQ/L (99-109); POTASSIUM 4.3 MEQ/L (3.7-5.4); SODIUM 142 MEQ/L (136-147)
[2017-12-25 05:40] LABS: GFR ESTIMATE (CALCULATED) 58 mL/min/; GLUCOSE 122 mg/dL (70-99); UREA NITROGEN (BUN) 26 mg/dL (9-23)
[2017-12-25 06:03] LABS: PLAT.SUFFICIENCY ADEQUATE; PLATELET COUNT 337 K/uL (156-360)
[2017-12-25 07:41] VITALS: BP 159/70
[2017-12-25 09:48] LABS: IRON 50 MCG/DL (35-150); TRANSFERRIN (TIBC) 149.6 mg/dL (215-380); TRANSFERRIN SATUR. 33 % (20-55)
[2017-12-25 10:14] LABS: FOLIC ACID (FOLATE) 21.7 NG/ML (5.0-22.0)
[2017-12-25 15:21] VITALS: BP 148/74
[2017-12-25 20:06] LABS: HEMATOCRIT 22.7 % (36.0-46.0); HEMOGLOBIN 7.3 G/DL (11.9-15.5); MCV 94.2 FL (83-99)
[2017-12-25 23:39] VITALS: BP 138/80
[2017-12-26 05:52] LABS: HEMATOCRIT 22.9 % (36.0-46.0); HEMOGLOBIN 7.4 G/DL (11.9-15.5)
[2017-12-26 06:19] LABS: CHLORIDE 118 MEQ/L (99-109); CREATININE 0.9 MG/DL (0.6-1.3); GFR ESTIMATE (CALCULATED) > 59 mL/min/; GLUCOSE 110 mg/dL (70-99); POTASSIUM 4.5 MEQ/L (3.7-5.4); SODIUM 146 MEQ/L (136-147); UREA NITROGEN (BUN) 19 mg/dL (9-23)
[2017-12-26 08:06] VITALS: BP 145/69
[2017-12-26 15:36] VITALS: BP 143/66
[2017-12-26] MEDS ORDERED: TAMSULOSIN HCL0.4 MG PO (15:56)
== END 2017-12-26 16:54 | disposition home or self-care (01) | DRG 871 ==
LOC: EME → EDBD 03:48 → EME 03:48 → 4EAST 08:09 → EDOF 08:09 → ENRESERV 08:11 → 4EAST 09:00 → ENRESERV 09:02 → CANRESERV 09:02 → EDOF 09:12 → ENRESERV 09:35 → 5SOUTH 09:51 → ENRESERV 09:51 → 4EAST 10:04 → ENRESERV 12-19 11:20 → 5SOUTH 12-19 15:07
PROVIDERS: Emergency Medicine; Hospitalist; Internal Medicine
DX: A41.9 Sepsis, unspecified organism (principal); J69.0 Pneumonitis due to inhalation of food and vomit; J96.01 Acute respiratory failure with hypoxia; R65.20 Severe sepsis without septic shock; E87.70 Fluid overload, unspecified; E87.0 Hyperosmolality and hypernatremia; R68.0 Hypothermia, not associated with low environmental temperature; I10 Essential (primary) hypertension; G80.9 Cerebral palsy, unspecified; F71 Moderate intellectual disabilities; K21.9 Gastro-esophageal reflux disease without esophagitis; M06.9 Rheumatoid arthritis, unspecified; G40.909 Epilepsy, unspecified, not intractable, without status epilepticus; I49.9 Cardiac arrhythmia, unspecified; M19.90 Unspecified osteoarthritis, unspecified site; E03.9 Hypothyroidism, unspecified; D64.9 Anemia, unspecified; R32 Unspecified urinary incontinence; R33.9 Retention of urine, unspecified; F32.9 Major depressive disorder, single episode, unspecified; F41.9 Anxiety disorder, unspecified; Z66 Do not resuscitate; I69.354 Hemiplegia and hemiparesis following cerebral infarction affecting left non-dominant side; Z74.01 Bed confinement status; Z87.11 Personal history of peptic ulcer disease
CPT/HCPCS: 36600; 71045; 71046; 71275; 74230; 80048; 80048 91; 80053; 80162; 82607; 82746; 82803; 83540; 83605; 83880; 84466; 85014; 85018; 85025; 85027; 87040; 87070; 87205; 87449; 87502; 92526 GN; 92610 GN; 92611 GN; 93005; 93306; 94640; 94640 76; 94760; 94799; 97530 GP; 99202; 99281; 99285; J0295; J0456; J0696; J1650; J1940; J2920; J7050; J7070; J7512; J8610